=== PATIENT | female | born 1970 | race American Indian/Alaskan Native ===

== ENCOUNTER 2019-07-17 17:34 | Emergency (ER) | payer SELFPAY ==
--- NOTE | 2019-07-17 18:40 | Event Note ---
ED Screening Note Date of service: 07/17/19 Time: 18:38 ED Screening Note: 49 yo f presents with chest pain radiating ti left arm x few hours ago No PMH This initial assessment/diagnostic orders/clinical plan/treatment(s) is/are subject to change based on patients health status, clinical progression and re- assessment by fellow clinical providers in the ED. Further treatment and workup at subsequent clinical providers discretion. Patient/guardian urged not to elope from the ED as their condition may be serious if not clinically assessed and managed. Initial orders include: labs ordered
[2019-07-17 19:08] LABS: Basophils # (Auto) 0.1 K/mm3 (0.0-0.1); Basophils % (Auto) 0.8 % (0.0-1.8); Eosinophils # (Auto) 0.2 K/mm3 (0.0-0.4); Eosinophils % (Auto) 2.4 % (0.0-4.3); Hematocrit 39.2 % (30.3-42.9); Hemoglobin 12.7 gm/dl (10.1-14.3); Lymphocytes # (Auto) 2.5 K/mm3 (1.2-5.4); Lymphocytes % (Auto) 30.6 % (13.4-35.0); Mean Corpuscular HGB Conc 33 % (30-34); Mean Corpuscular Volume 84 fl (79-97); Monocytes # (Auto) 0.6 K/mm3 (0.0-0.8); Monocytes % (Auto) 6.9 % (0.0-7.3); Platelet Count 251 K/mm3 (140-440); Red Blood Count 4.67 M/mm3 (3.65-5.03); Red Cell Distribution Width 14.5 % (13.2-15.2)
[2019-07-17 19:26] LABS: BUN/Creatinine Ratio 18; Blood Urea Nitrogen 18 mg/dL (7-17); Calcium 8.9 mg/dL (8.4-10.2); Hemolysis Index 7
--- NOTE | 2019-07-17 19:50 | XRay Report ---
CHEST 1 VIEW INDICATION / CLINICAL INFORMATION: Chest Pain. COMPARISON: None available. FINDINGS: SUPPORT DEVICES: None. HEART / MEDIASTINUM: Borderline cardiomegaly. Thoracic aortic contour is unremarkable. LUNGS / PLEURA: No significant pulmonary or pleural abnormality. No pneumothorax. IMPRESSION: No acute finding. Borderline cardiomegaly. Signer Name: Enrike Romero MD Signed: 07/17/2019 7:46 PM Workstation Name: [id number]
[2019-07-17] MEDS ORDERED: ASPIRIN 81 MG TAB CHEW PO ONE (20:43)
--- NOTE | 2019-07-17 20:47 | Emergency Department Report ---
ED Chest Pain HPI - General Chief Complaint: Chest Pain Stated Complaint: LT SIDE/ARM PAIN/MILD CHEST PAIN Time Seen by Provider: 07/17/19 20:34 Source: patient Mode of arrival: Ambulatory Limitations: No Limitations - History of Present Illness Initial Comments: Patient is 49 years old female with no significant past medical history except for GERD. patient presented to the ER complaining of left sided chest pain, pressure in nature radiated to her left arm. Patient stated the pain started while she was working this afternoon. Patient stated the pain resolved now. Patient denied any shortness of breath, fever. She stated that she has been co ughing a lot recently. MD Complaint: chest pain Onset: during rest Pain Location: left chest Pain Radiation: LUE Severity: mild Severity scale (0 -10): 3 Quality: pressure Consistency: now resolved Improves With: nothing - Related Data Allergies Allergy/AdvReac Type Severity Reaction Status Date / Time sulfamethoxazole Allergy Hives Verified 07/17/19 17:46 [From ] trimethoprim [From ] Allergy Hives Verified 07/17/19 17:46 Heart Score - HEART Score History: Moderately suspicious EKG: Normal Age: 45-65 Risk factors: 1-2 risk factors Troponin: < normal limit HEART Score: 3 - Critical Actions Critical Actions: 0-3 pts:0.9-1.7%risk of adverse cardiac event.Candidate for d ischarge ED Review of Systems ROS: Stated complaint: LT SIDE/ARM PAIN/MILD CHEST PAIN Other details as noted in HPI Comment: All other systems reviewed and negative Constitutional: denies: chills, fever Respiratory: denies: cough, shortness of breath Cardiovascular: chest pain. denies: palpitations, dyspnea on exertion Gastrointestinal: denies: abdominal pain, nausea Musculoskeletal: denies: back pain ED Past Medical Hx - Past Medical History Previous Medical History?: No - Surgical History Past Surgical History?: Yes Hx Cholecystectomy: Yes Additional Surgical History: hysterectomy. tonsillectomy. x 1. tubal ligation - Social History Smoking Status: Never Smoker Substance Use Type: None ED Physical Exam - General Limitations: No Limitations General appearance: alert, in no apparent distress - Head Head exam: Present: atraumatic, normocephalic, normal inspection - Eye Eye exam: Present: normal appearance - ENT ENT exam: Present: normal exam, normal orophraynx, mucous membranes moist - Neck Neck exam: Present: normal inspection, full ROM. Absent: tenderness, meningismus - Respiratory Respiratory exam: Present: normal lung sounds bilaterally - Cardiovascular Cardiovascular Exam: Present: regular rate, normal rhythm, normal heart sounds - GI/Abdominal GI/Abdominal exam: Present: soft, normal bowel sounds. Absent: distended, tenderness, guarding, rebound, rigid, organomegaly, mass, bruit, pulsatile mass, hernia - Extremities Exam Extremities exam: Present: normal inspection, full ROM, normal capillary refill - Back Exam Back exam: Present: normal inspection, full ROM - Neurological Exam Neurological exam: Present: alert, oriented X3, CN II-XII intact, normal gait, reflexes normal. Absent: motor sensory deficit - Psychiatric Psychiatric exam: Present: normal mood - Skin Skin exam: Present: warm, intact, normal color ED Course Vital Signs 07/17/19 07/17/19 07/17/19 17:48 18:41 20:24 Temperature 98.2 F 98.2 F Pulse Rate 90 93 H Respiratory 18 18 Rate Blood Pressure 144/91 144/91 O2 Sat by Pulse 98 98 97 Oximetry 07/17/19 21:00 Temperature Pulse Rate 71 Respiratory 13 Rate Blood Pressure 144/94 O2 Sat by Pulse 100 Oximetry ED Medical Decision Making - Lab Data Result diagrams: 07/17/19 18:45 07/17/19 18:45 - EKG Data -: EKG Interpreted by Fl EKG shows normal: sinus rhythm Rate: normal - EKG Data Interpretation: no acute changes - Radiology Data Radiology results: report reviewed - Medical Decision Making Patient is 49 years old female with no significant past medical history except for GERD. patient presented to the ER complaining of left sided chest pain, pressure in nature radiated to her left arm. Patient stated the pain started while she was working this afternoon. Patient stated the pain resolved now. P atient denied any shortness of breath, fever. She stated that she has been coughing a lot recently. Patient EKG showed no ST elevation or depression. Chest x-ray is unremarkable. Labs reviewed and is unremarkable including 2 sets of troponin. Patient stated that her chest pain is completely resolved. Patient strongly advised to follow- up with her primary care physician for outpatient cardiac work-up and advised to return to the ER if she develop any new symptoms. Critical care attestation.: If time is entered above; I have spent that time in minutes in the direct care of this critically ill patient, excluding procedure time. ED Disposition Clinical Impression: Chest pain Disposition: DC-01 TO HOME OR SELFCARE Is pt being admited?: No Condition: Stable Instructions: Chest Pain (ED) Referrals: PRIMARY CARE, [Referring] - 3-5 Days
[2019-07-17 21:06] VITALS: BP 144/94
== END 2019-07-17 22:15 | disposition home or self-care (01) ==
LOC: ED 17:34
DX: R07.89 Other chest pain (principal); Z90.710 Acquired absence of both cervix and uterus; Z90.89 Acquired absence of other organs; Z90.49 Acquired absence of other specified parts of digestive tract; Z98.51 Tubal ligation status; Z98.890 Other specified postprocedural states; Z88.2 Allergy status to sulfonamides
CPT/HCPCS: 36415; 71045; 80048; 83690; 84484; 84703; 85025; 85379; 93005; 93010